=== PATIENT | female | born 1940 | race Caucasian/White ===

== ENCOUNTER 2021-11-29 15:40 | Inpatient (IN) | payer OTHER ==
[2021-11-29 16:14] VITALS: BMI 28.3
[2021-11-29] MEDS ORDERED: LACTATED RINGERS SOLUTION 1000 ML INFUS.BAG IV ONE (17:22)
[2021-11-29 17:32] LABS: BASO % 0.5 % (0-2.0); EOS % 0.4 % (0-4.5); HEMATOCRIT 35.3 % (32.4-45.2); HEMOGLOBIN 11.8 GM/dL (10.7-15.3); LYMPH % 11.2 % (8-40); MCH 30.1 pg (25.7-33.7); MCHC 33.4 g/dl (32.0-36.0); MEAN CELL VOLUME 90.1 fl (80-96); MEAN PLT VOLUME 8.1 fl (7.5-11.1); MONO % 6.7 % (3.8-10.2); NEUT % 81.2 % (42.8-82.8); PLATELET COUNT 204 10^3/uL (134-434); RBC 3.92 M/mm3 (3.60-5.2); RDW 15.6 % (11.6-15.6); WHITE BLOOD COUNT 8.2 K/mm3 (4.0-10.0)
[2021-11-29 17:52] LABS: CALCIUM 9.9 mg/dL (8.5-10.1)
[2021-11-29 17:53] LABS: ALBUMIN 3.7 g/dl (3.4-5.0); BLOOD UREA NITROGEN 20.1 mg/dL (7-18)
[2021-11-29 17:56] LABS: CREATININE 1.3 mg/dL (0.55-1.3)
[2021-11-29 17:58] LABS: BILIRUBIN,TOTAL 0.6 mg/dL (0.2-1); TOT PROT 7.6 g/dl (6.4-8.2)
[2021-11-29] MEDS ORDERED: MAGNESIUM SULF 50% (8.12 MEQ/2 ML-1 GM VIAL) IVPB ONE (19:21)
[2021-11-29] MEDS ORDERED: POTASSIUM CHLORIDE TABS 20 MEQ TABLET.ER (FP) PO ONE ×2 (19:25→20:10)
[2021-11-29] MEDS ORDERED: CEFTRIAXONE 1 GM in DEXTROSE 5%-WATER - 50 ML IVPB ONE (19:36)
[2021-11-29 20:00] LABS: EPI CELLS 30 /uL (0-25.1); HYALINE CASTS 1 /uL (0-3.1); PH,URINE 7.5 (5.0-8.0); URINE APPEARANCE CLEAR; URINE BACTERIA 691 /uL (0-1359); URINE BILIRUBIN 1+ (NEGATIVE); URINE COLOR DK YELLOW; URINE GLUCOSE (UA) NEGATIVE (NEGATIVE); URINE KETONE 1+ (NEGATIVE); URINE LEUK ESTERASE 1+ (NEGATIVE); URINE NITRITE NEGATIVE (NEGATIVE); URINE PROTEIN 1+ (NEGATIVE); URINE RBC 24 /uL (0-23.9); URINE WBC 13 /uL (0-25.8)
[2021-11-29] MEDS ORDERED: CEFTRIAXONE 1 GM/50 ML BAG ONE (20:10)
[2021-11-29] MEDS ORDERED: MAGNESIUM SULFATE IN WATER 2 GM/50 ML IVPB IVPB ONE (20:10)
[2021-11-29] MEDS ORDERED: ACETAMINOPHEN 325 MG TABLET (FP) PO PRN (22:19)
[2021-11-30] MEDS: SODIUM CHLORIDE 1,000 ML IV SCH ×2 (03:47→13:45)
[2021-11-30] MEDS ORDERED: amLODIPine BESYLATE 5 MG TABLET (FP) ONE (09:11)
[2021-11-30] MEDS ORDERED: SERTRALINE HCL 50 MG TABLET (FP) ONE (09:11)
[2021-11-30] MEDS ORDERED: LOSARTAN POTASSIUM 50 MG TABLET ONE (09:11)
[2021-11-30] MEDS ORDERED: APIXABAN 5 MG TABLET ONE (09:11)
[2021-11-30] MEDS ORDERED: METOPROLOL TARTRATE 50 MG TABLET (FP) ONE (09:11)
[2021-11-30 09:12] LABS: BASO % 0.7 % (0-2.0); EOS % 1.9 % (0-4.5); HEMATOCRIT 33.5 % (32.4-45.2); HEMOGLOBIN 11.3 GM/dL (10.7-15.3); LYMPH % 26.1 % (8-40); MCH 30.3 pg (25.7-33.7); MCHC 33.6 g/dl (32.0-36.0); MEAN CELL VOLUME 90.1 fl (80-96); MEAN PLT VOLUME 8.6 fl (7.5-11.1); MONO % 9.2 % (3.8-10.2); NEUT % 62.1 % (42.8-82.8); PLATELET COUNT 189 10^3/uL (134-434); RBC 3.72 M/mm3 (3.60-5.2); WHITE BLOOD COUNT 5.8 K/mm3 (4.0-10.0)
[2021-11-30] MEDS ORDERED: cefTRIAXone SODIUM 1 GM VIAL ONE (09:12)
[2021-11-30] MEDS: APIXABAN 5 MG TABLET PO SCH ×2 (09:19→22:27)
[2021-11-30] MEDS: METOPROLOL TARTRATE 50 MG TABLET (FP) PO SCH ×2 (09:19→22:26)
[2021-11-30 09:34] LABS: BLOOD UREA NITROGEN 16.2 mg/dL (7-18); CALCIUM 8.9 mg/dL (8.5-10.1)
[2021-11-30 09:35] LABS: ALBUMIN 3.1 g/dl (3.4-5.0); MAGNESIUM 2.3 mg/dL (1.8-2.4)
[2021-11-30 09:38] LABS: CREATININE 0.9 mg/dL (0.55-1.3); PHOSPHOROUS 3.3 mg/dL (2.5-4.9)
[2021-11-30 09:39] LABS: BILIRUBIN,TOTAL 0.7 mg/dL (0.2-1); TOT PROT 6.6 g/dl (6.4-8.2)
[2021-11-30] MEDS ORDERED: amLODIPine BESYLATE 5 MG TABLET (FP) PO SCH (10:00)
[2021-11-30] MEDS ORDERED: SERTRALINE HCL 50 MG TABLET (FP) PO SCH (10:00)
[2021-11-30] MEDS ORDERED: CEFTRIAXONE 1 GM in DEXTROSE 5%-WATER - 50 ML IVPB SCH (10:00)
[2021-11-30] MEDS ORDERED: LOSARTAN POTASSIUM 50 MG TABLET PO SCH (10:00)
[2021-11-30] MEDS ORDERED: DEXTROSE 5%-WATER - 50 ML IVPB ONE (17:18)
[2021-11-30] MEDS ORDERED: PIPERACILLIN/TAZOBACTAM 3.375 GM VIAL IVPB ONE (17:18)
[2021-11-30] MEDS: PIPERACILLIN/TAZOB 3.375 GM 3.375 GM in DEXTROSE 5%-WATER - 50 ML IVPB SCH (18:08)
[2021-11-30] MEDS ORDERED: ATORVASTATIN CA 40 MG TABLET (FP) PO SCH (22:00)
[2021-11-30] MEDS ORDERED: ACETAMINOPHEN 325 MG TABLET (FP) PO PRN (22:37)
[2021-12-01] MEDS ORDERED: DEXTROSE 5%-WATER - 50 ML IVPB ONE ×3 (02:20→17:35)
[2021-12-01] MEDS ORDERED: PIPERACILLIN/TAZOBACTAM 3.375 GM VIAL IVPB ONE ×3 (02:20→17:35)
[2021-12-01] MEDS: PIPERACILLIN/TAZOB 3.375 GM 3.375 GM in DEXTROSE 5%-WATER - 50 ML IVPB SCH ×3 (02:31→17:42)
[2021-12-01] MEDS: SODIUM CHLORIDE 1,000 ML IV SCH ×3 (05:49→22:37)
[2021-12-01] MEDS ORDERED: APIXABAN 5 MG TABLET PO SCH (10:00)
[2021-12-01 10:11] LABS: BASO % 1.2 % (0-2.0); EOS % 4.8 % (0-4.5); HEMATOCRIT 33.3 % (32.4-45.2); LYMPH % 26.1 % (8-40); MCHC 33.1 g/dl (32.0-36.0); MEAN CELL VOLUME 90.6 fl (80-96); MEAN PLT VOLUME 8.9 fl (7.5-11.1); MONO % 8.3 % (3.8-10.2); NEUT % 59.6 % (42.8-82.8); PLATELET COUNT 205 10^3/uL (134-434); RBC 3.68 M/mm3 (3.60-5.2); RDW 15.8 % (11.6-15.6); WHITE BLOOD COUNT 4.7 K/mm3 (4.0-10.0)
[2021-12-01 10:22] LABS: CALCIUM 8.6 mg/dL (8.5-10.1)
[2021-12-01 10:23] LABS: BLOOD UREA NITROGEN 11.6 mg/dL (7-18); MAGNESIUM 2.2 mg/dL (1.8-2.4)
[2021-12-01 10:26] LABS: PHOSPHOROUS 3.7 mg/dL (2.5-4.9)
[2021-12-01 10:28] LABS: BILIRUBIN,TOTAL 0.5 mg/dL (0.2-1); TOT PROT 6.5 g/dl (6.4-8.2)
[2021-12-01] MEDS: LOSARTAN POTASSIUM 50 MG TABLET PO SCH (11:07)
[2021-12-01] MEDS: METOPROLOL TARTRATE 50 MG TABLET (FP) PO SCH ×2 (11:07→21:04)
[2021-12-01] MEDS: SERTRALINE HCL 50 MG TABLET (FP) PO SCH (11:08)
[2021-12-01] MEDS: amLODIPine BESYLATE 5 MG TABLET (FP) PO SCH (11:08)
[2021-12-01] MEDS: PANTOPRAZOLE 40 MG TABLET PO SCH (16:46)
[2021-12-01] MEDS ORDERED: PIPERACILLIN/TAZOB 3.375 GM 3.375 GM in DEXTROSE 5%-WATER - 50 ML IVPB SCH (18:00)
[2021-12-01] MEDS: ATORVASTATIN CA 40 MG TABLET (FP) PO SCH (21:12)
[2021-12-02] MEDS ORDERED: PIPERACILLIN/TAZOBACTAM 3.375 GM VIAL IVPB ONE ×2 (01:44→09:34)
[2021-12-02] MEDS ORDERED: DEXTROSE 5%-WATER - 50 ML IVPB ONE ×2 (01:44→09:35)
[2021-12-02] MEDS: PIPERACILLIN/TAZOB 3.375 GM 3.375 GM in DEXTROSE 5%-WATER - 50 ML IVPB SCH ×2 (01:51→09:48)
[2021-12-02] MEDS: METOPROLOL TARTRATE 50 MG TABLET (FP) PO SCH ×2 (09:46→21:24)
[2021-12-02] MEDS: LOSARTAN POTASSIUM 50 MG TABLET PO SCH (09:46)
[2021-12-02] MEDS: SERTRALINE HCL 50 MG TABLET (FP) PO SCH (09:46)
[2021-12-02] MEDS: amLODIPine BESYLATE 5 MG TABLET (FP) PO SCH (09:46)
[2021-12-02] MEDS: PANTOPRAZOLE 40 MG TABLET PO SCH (09:46)
[2021-12-02] MEDS: SODIUM CHLORIDE 1,000 ML IV SCH ×2 (11:47→22:37)
[2021-12-02] MEDS: ATORVASTATIN CA 40 MG TABLET (FP) PO SCH (21:24)
[2021-12-03] MEDS: SODIUM CHLORIDE 1,000 ML IV SCH (06:00)
[2021-12-03 08:50] LABS: HEMATOCRIT 35.1 % (32.4-45.2); HEMOGLOBIN 11.8 GM/dL (10.7-15.3); MCH 30.3 pg (25.7-33.7); MCHC 33.7 g/dl (32.0-36.0); MEAN CELL VOLUME 89.8 fl (80-96); MEAN PLT VOLUME 8.2 fl (7.5-11.1); PLATELET COUNT 197 10^3/uL (134-434); RBC 3.91 M/mm3 (3.60-5.2); RDW 15.7 % (11.6-15.6); WHITE BLOOD COUNT 4.3 K/mm3 (4.0-10.0)
[2021-12-03 09:12] LABS: BLOOD UREA NITROGEN 5.8 mg/dL (7-18); CALCIUM 9.2 mg/dL (8.5-10.1)
[2021-12-03 09:15] LABS: CREATININE 0.9 mg/dL (0.55-1.3)
[2021-12-03] MEDS: SERTRALINE HCL 50 MG TABLET (FP) PO SCH (11:36)
[2021-12-03] MEDS: METOPROLOL TARTRATE 50 MG TABLET (FP) PO SCH ×2 (11:36→21:37)
[2021-12-03] MEDS: LOSARTAN POTASSIUM 50 MG TABLET PO SCH (11:36)
[2021-12-03] MEDS: amLODIPine BESYLATE 5 MG TABLET (FP) PO SCH (11:36)
[2021-12-03] MEDS: PANTOPRAZOLE 40 MG TABLET PO SCH (11:36)
[2021-12-03] MEDS ORDERED: SODIUM CHLORIDE 100 ML IVPB ONE ×2 (14:01→20:13)
[2021-12-03] MEDS ORDERED: AMPICILLIN NA/SULBACTAM NA 1.5 GM VIAL ONE ×2 (14:01→20:13)
[2021-12-03] MEDS: AMPICILLIN NA/SULBACTAM NA 1.5 GM in SODIUM CHLORIDE 100 ML IVPB SCH ×2 (14:08→21:37)
[2021-12-03] MEDS: PIPERACILLIN/TAZOB 3.375 GM 3.375 GM in DEXTROSE 5%-WATER - 50 ML IVPB SCH ×2 (14:14→14:15)
[2021-12-03] MEDS: ATORVASTATIN CA 40 MG TABLET (FP) PO SCH (21:38)
[2021-12-04] MEDS ORDERED: AMPICILLIN NA/SULBACTAM NA 1.5 GM VIAL ONE ×4 (00:19→21:42)
[2021-12-04] MEDS ORDERED: SODIUM CHLORIDE 100 ML IVPB ONE ×4 (00:19→21:42)
[2021-12-04] MEDS: AMPICILLIN NA/SULBACTAM NA 1.5 GM in SODIUM CHLORIDE 100 ML IVPB SCH ×4 (03:00→21:44)
[2021-12-04 08:54] LABS: HEMATOCRIT 35.8 % (32.4-45.2); HEMOGLOBIN 12.3 GM/dL (10.7-15.3); MCH 30.7 pg (25.7-33.7); MCHC 34.3 g/dl (32.0-36.0); MEAN CELL VOLUME 89.4 fl (80-96); MEAN PLT VOLUME 8.4 fl (7.5-11.1); PLATELET COUNT 188 10^3/uL (134-434); RBC 4.01 M/mm3 (3.60-5.2); RDW 15.7 % (11.6-15.6); WHITE BLOOD COUNT 4.4 K/mm3 (4.0-10.0)
[2021-12-04 08:57] LABS: CALCIUM 8.8 mg/dL (8.5-10.1)
[2021-12-04 08:58] LABS: BLOOD UREA NITROGEN 7.9 mg/dL (7-18)
[2021-12-04 09:01] LABS: CREATININE 0.8 mg/dL (0.55-1.3)
[2021-12-04] MEDS: SERTRALINE HCL 50 MG TABLET (FP) PO SCH (09:10)
[2021-12-04] MEDS: METOPROLOL TARTRATE 50 MG TABLET (FP) PO SCH ×2 (09:10→21:45)
[2021-12-04] MEDS: LOSARTAN POTASSIUM 50 MG TABLET PO SCH (09:13)
[2021-12-04] MEDS: amLODIPine BESYLATE 5 MG TABLET (FP) PO SCH (09:13)
[2021-12-04] MEDS: PANTOPRAZOLE 40 MG TABLET PO SCH (09:14)
[2021-12-04] MEDS ORDERED: KCL 10 MEQ IVPB 10 MEQ/100 ML INFUS.BAG IVPB SCH (17:30)
[2021-12-04] MEDS ORDERED: POTASSIUM CHLORIDE TABS 20 MEQ TABLET.ER (FP) PO ONE (18:23)
[2021-12-04] MEDS: ATORVASTATIN CA 40 MG TABLET (FP) PO SCH (21:44)
[2021-12-05] MEDS: AMPICILLIN NA/SULBACTAM NA 1.5 GM in SODIUM CHLORIDE 100 ML IVPB SCH ×4 (03:50→21:06)
[2021-12-05 09:49] LABS: BASO % 0.9 % (0-2.0); EOS % 5.2 % (0-4.5); HEMATOCRIT 33.9 % (32.4-45.2); HEMOGLOBIN 11.5 GM/dL (10.7-15.3); LYMPH % 35.1 % (8-40); MCH 30.4 pg (25.7-33.7); MCHC 33.8 g/dl (32.0-36.0); MEAN PLT VOLUME 8.2 fl (7.5-11.1); MONO % 9.9 % (3.8-10.2); NEUT % 48.9 % (42.8-82.8); PLATELET COUNT 195 10^3/uL (134-434); RBC 3.77 M/mm3 (3.60-5.2); RDW 15.8 % (11.6-15.6)
[2021-12-05 09:56] LABS: INR 1.14 (0.83-1.09); PROTHROMBIN TIME (PATIENT) 13.1 SEC (9.7-13.0)
[2021-12-05] MEDS ORDERED: TETRACAINE/BENZOCAINE/BUTAMBEN 20 GM SPR TP ONE ×2 (09:57→10:05)
[2021-12-05 10:15] LABS: CALCIUM 8.5 mg/dL (8.5-10.1)
[2021-12-05 10:18] LABS: CREATININE 0.9 mg/dL (0.55-1.3)
[2021-12-05] MEDS ORDERED: SODIUM CHLORIDE 100 ML IVPB ONE ×3 (11:21→20:58)
[2021-12-05] MEDS ORDERED: AMPICILLIN NA/SULBACTAM NA 1.5 GM VIAL ONE ×3 (11:21→20:58)
[2021-12-05] MEDS: SERTRALINE HCL 50 MG TABLET (FP) PO SCH (11:51)
[2021-12-05] MEDS: METOPROLOL TARTRATE 50 MG TABLET (FP) PO SCH ×2 (11:51→21:06)
[2021-12-05] MEDS: LOSARTAN POTASSIUM 50 MG TABLET PO SCH (11:51)
[2021-12-05] MEDS: amLODIPine BESYLATE 5 MG TABLET (FP) PO SCH (11:51)
[2021-12-05] MEDS: PANTOPRAZOLE 40 MG TABLET PO SCH (12:45)
[2021-12-05] MEDS: ATORVASTATIN CA 40 MG TABLET (FP) PO SCH (21:06)
[2021-12-06] MEDS ORDERED: AMPICILLIN NA/SULBACTAM NA 1.5 GM VIAL ONE ×3 (01:37→14:03)
[2021-12-06] MEDS ORDERED: SODIUM CHLORIDE 100 ML IVPB ONE ×3 (01:37→14:03)
[2021-12-06] MEDS: AMPICILLIN NA/SULBACTAM NA 1.5 GM in SODIUM CHLORIDE 100 ML IVPB SCH ×3 (03:00→15:10)
[2021-12-06 09:10] LABS: HEMATOCRIT 33.5 % (32.4-45.2); HEMOGLOBIN 11.6 GM/dL (10.7-15.3); MCH 30.8 pg (25.7-33.7); MCHC 34.5 g/dl (32.0-36.0); MEAN CELL VOLUME 89.1 fl (80-96); MEAN PLT VOLUME 8.1 fl (7.5-11.1); PLATELET COUNT 185 10^3/uL (134-434); RBC 3.76 M/mm3 (3.60-5.2); RDW 15.7 % (11.6-15.6); WHITE BLOOD COUNT 4.7 K/mm3 (4.0-10.0)
[2021-12-06 09:26] LABS: CALCIUM 8.6 mg/dL (8.5-10.1)
[2021-12-06 09:28] LABS: BLOOD UREA NITROGEN 11.2 mg/dL (7-18)
[2021-12-06 09:31] LABS: CREATININE 0.9 mg/dL (0.55-1.3)
[2021-12-06] MEDS: METOPROLOL TARTRATE 50 MG TABLET (FP) PO SCH (09:39)
[2021-12-06] MEDS: SERTRALINE HCL 50 MG TABLET (FP) PO SCH (09:40)
[2021-12-06] MEDS: LOSARTAN POTASSIUM 50 MG TABLET PO SCH (09:41)
[2021-12-06] MEDS: amLODIPine BESYLATE 5 MG TABLET (FP) PO SCH (09:41)
[2021-12-06] MEDS ORDERED: PANTOPRAZOLE 20 MG TABLET PO SCH (10:00)
[2021-12-06 13:27] VITALS: BP 122/54; PULSE 69; TEMP 98.5
== END 2021-12-06 17:58 | disposition home or self-care (01) | DRG 392 ==
LOC: JER 15:40 → JERBED 20:20 → J6S 11-30 13:33 → UNDODISOB 12-01 16:35 → OBSVTOIN 12-04 12:57
PROVIDERS: ADMIT Hospitalist
PROC: 0DB68ZX Excision of Stomach, Via Natural or Artificial Opening Endoscopic, Diagnostic (ICD-10-PCS; 2021-12-05)
PROC: 0DB58ZX Excision of Esophagus, Via Natural or Artificial Opening Endoscopic, Diagnostic (ICD-10-PCS; principal; 2021-12-05 10:14)
DX: K31.9 Disease of stomach and duodenum, unspecified (principal); N39.0 Urinary tract infection, site not specified; B37.81 Candidal esophagitis; I25.10 Atherosclerotic heart disease of native coronary artery without angina pectoris; I10 Essential (primary) hypertension; I25.2 Old myocardial infarction; E78.00 Pure hypercholesterolemia, unspecified; E78.5 Hyperlipidemia, unspecified; R10.9 Unspecified abdominal pain; R94.31 Abnormal electrocardiogram [ECG] [EKG]; I48.91 Unspecified atrial fibrillation; B95.2 Enterococcus as the cause of diseases classified elsewhere; R63.0 Anorexia; Z68.28 Body mass index [BMI] 28.0-28.9, adult; F32.A Depression, unspecified; Z95.5 Presence of coronary angioplasty implant and graft; Z96.652 Presence of left artificial knee joint
CPT/HCPCS: 36415; 71046-TC-FY; 74176-TC; 74240-TC-FY; 76775-TC; 80048; 80053; 81003; 82550; 83735; 84100; 84484; 85025; 85027; 85610; 87040; 87086; 87186; 88104; 88305-TC; 93005; 93010; 99285-25; C9803; G0378; U0003; U0005